=== PATIENT | female | born 1995 | race Hispanic/Latino ===

== ENCOUNTER 2017-08-06 17:10 | Emergency (ER) | payer MEDICAID, SELFPAY | END 2017-08-06 18:25 | disposition home or self-care (01) | LOC: SCSER 17:10 | DX: J10.1 Influenza due to other identified influenza virus with other respiratory manifestations (principal) | CPT/HCPCS: 99283 ==

== ENCOUNTER 2018-10-08 10:35 | Emergency (ER) | payer MEDICAID, SELFPAY ==
[2018-10-08] MEDS ORDERED: Lidocaine 1% w/Epinephrine 1:100K 20 ML VIAL ONE (11:54)
[2018-10-08] MEDS ORDERED: Bacitracin Zinc 1 Packet ONE (12:25)
== END 2018-10-08 12:36 | disposition home or self-care (01) ==
LOC: ERS 10:35
DX: O99.711 Diseases of the skin and subcutaneous tissue complicating pregnancy, first trimester (principal); L02.415 Cutaneous abscess of right lower limb; Z3A.14 14 weeks gestation of pregnancy
CPT/HCPCS: 10061; J2001

== ENCOUNTER 2018-12-01 12:06 | Day surgery (SDC) | payer MEDICAID, OTHER ==
[2018-12-01] MEDS ORDERED: Lactated Ringer's 500 ML IV SCH (13:00)
--- NOTE | 2018-12-01 13:04 | PDOC.LDHP ---
Labor and Delivery H&P Chief complaint: other ("anxiety") HPI: Patient of Dr gonzalez Location: Triage Time: 1302 CC: "panic attack" HPI: 23 yo with EDC 04/06/19, at 22 weeks 0 days here for "anxiety attack". She ststes she went to a [employer] yesterday and "had a drink" and has had anxiety since. She has no CP, REDDY, no LOF, no VB, good FM. No CTX. She has a past HX of anxiety but is on no meds. Review of Systems: complete ros completed and is per HPI Current gestational age (weeks): 22 (0 days) Due date: 04/06/19 Dating criteria: last menstrual period Grav: 3 Para: 2 OB History Details: x 2 Current complications: other (HX unmedicated anxiety) Abnormal US findings: No Current medications: pre- vitamins Previous surgical history: none Allergies/Adverse Reactions: Allergies Allergy/AdvReac Type Severity Reaction Status Date / Time No Known Allergies Allergy Verified 06/27/16 04:45 - Physical Exam Vital signs reviewed and normal: yes (100/53 99 22 98.2) General: NAD Heart: RRR Lungs: CTAB Abdomen: gravid Welling contractions every: Doppler FHTs wnl 150s; abd soft..no CTX - Assessment 23 yo at 22 weeks weeks multip with untreated anxiety, r/o other chemical/drug exposure per "drink" - Plan Plan: observation in L&D (I have ordered a CMP and UDS. We will give 500ml LR as fluid bolus for conservative care. No evidence tachycardia on pulse check but will r/o organic issue with EKG. May need outpatient med start for "anxiety ".)
[2018-12-01 13:45] LABS: ALT (SGPT) 9 U/L (8-55); AST (SGOT) 15 U/L (5-34); Albumin 3.7 g/dL (3.5-5.0); Alkaline Phosphatase 55 U/L (40-150); Anion Gap 10 mmol/L (10-20); BUN (Urea Nitrogen) 5 mg/dL (7.0-18.7); Bilirubin, Total 0.4 mg/dL (0.2-1.2); Calc. Creatinine Clearance 0 mL/min (70-130); Calcium 8.7 mg/dL (7.8-10.44); Carbon Dioxide 25 mmol/L (22-29); Chloride 104 mmol/L (98-107); Estimated GFR-MDRD Greater than 90; Glucose 86 mg/dL (70-105); Potassium 3.3 mmol/L (3.5-5.1); Protein, Total 6.7 g/dL (6.0-8.3); Sodium 136 mmol/L (136-145)
--- NOTE | 2018-12-01 13:47 | PDOC.EVN ---
Event Note - Event Note Event Note: At bedside: patient states had one vodka based beverage last PM and that gave "anxiety". Similar sxs with a friend who also took the drink... so we will check UDS. Patient states she is on probation for another issue and must take drug tests monthly. She is in no acute distress...vitals ok, and reviewed. I recommended starting meds with her provider if needed.
--- NOTE | 2018-12-01 14:08 | PDOC.EVN ---
Event Note - Event Note Event Note: Triage follow up: Patient has removed her IV and states she is leaving.Declines further eval. She has declined to leave a urine sample. Patient leaving prior to full work up.
== END 2018-12-01 14:10 | disposition left against medical advice (07) ==
LOC: L&D/OP 12:06
PROVIDERS: ATTEND Obstetrics & Gynecology
DX: O99.342 Other mental disorders complicating pregnancy, second trimester (principal); F41.0 Panic disorder [episodic paroxysmal anxiety]; Z3A.22 22 weeks gestation of pregnancy; Z79.899 Other long term (current) drug therapy
CPT/HCPCS: 36415; 80053; 96360; 99282

== ENCOUNTER 2019-03-19 11:22 | Day surgery (SDC) | payer OTHER ==
[2019-03-19 12:05] VITALS: BMI 36.3
--- NOTE | 2019-03-19 19:39 | PRG ---
DATE OF SERVICE: 03/19/2019 PRIMARY OB: Liza Hodan Bennett, certified nurse sourcing intern. CHIEF COMPLAINT: Vaginal pain. HISTORY OF PRESENT ILLNESS: The patient is a 24-year-old, G3, P2 female with an intrauterine at 37 weeks and 3 days, presenting to Labor and Delivery with vaginal pain. The patient reports a history of medical induction around this time for preeclampsia. She denies headache, shortness of breath, or abdominal pain. She denies any history of elevated pressures with this . The patient does admit that she has not had any complications with this other than just fatigue and discomfort here in the last weeks. The patient has come today, looking for induction of labor. She does report her primary care provider has counseled her that elective induction can be entertained at 39 weeks gestation or later. The patient denies any headache, again chest pain, shortness of breath, nausea, vomiting, fever, fall, diarrhea, constipation, hip problems, knee problems, muscle weakness, vaginal bleeding, leakage of fluid, change in discharge, or urinary urgency or frequency. PAST MEDICAL HISTORY: Negative. PAST SURGICAL HISTORY: Negative. ALLERGIES: NO KNOWN DRUG ALLERGIES. MEDICATIONS: vitamins. SOCIAL HISTORY: Denies drug, alcohol, or tobacco use during this . OB LABS: Unavailable at time of dictation. REVIEW OF SYSTEMS: Per HPI. OBJECTIVE: VITAL SIGNS: Blood pressure is 113/54, heart rate is 88, temperature 98.4. GENERAL: She appears to be in no acute distress. She is alert and oriented, cooperative, and pleasant to interact with. HEAD: Normocephalic and atraumatic. LUNGS: Clear to auscultation bilaterally. HEART: Has a regular rate and rhythm. ABDOMEN: Gravid and soft. EXTREMITIES: Nontender and nonedematous. CERVICAL: Exam per nursing staff, she is 2 cm, unchanged from her visit earlier in the week with her primary provider. heart tracing performed for pelvic pain shows a baseline in the 120s with moderate long-term variability, positive 15 x 15 accelerations, no decelerations. Tocometer is showing some occasional irritability. ASSESSMENT AND PLAN: The patient is a 24-year-old, G3, P2 female with an intrauterine at 37 weeks and 3 days, having some vaginal pressure and sharp pains, consistent with musculoskeletal pains of . We did queen's counsel her that a belt may give her some assistance, also that time in a swimming poor or warm baths may also allow some relief with the buoyancy. We did review the recommendations for elective induction is not to be performed until after 39 weeks gestation. Fetus has a reactive NST and category 1 tracing. The patient has a followup appointment with her primary OB on Sunday, which we have encouraged that she keep. Job ID: [id number]
== END 2019-03-19 13:40 | disposition home or self-care (01) ==
LOC: L&D/OP 11:22
PROVIDERS: ATTEND Advanced Practice Midwife
DX: O99.89 Other specified diseases and conditions complicating pregnancy, childbirth and the puerperium (principal); R10.2 Pelvic and perineal pain; Z79.82 Long term (current) use of aspirin; Z3A.37 37 weeks gestation of pregnancy
CPT/HCPCS: 99282

== ENCOUNTER 2019-03-30 00:13 | Day surgery (SDC) | payer OTHER ==
[2019-03-30 00:49] VITALS: BMI 36.6
--- NOTE | 2019-03-30 04:40 | PDOC.FPROB ---
FMR OB H&P: HPI - History of Present Illness Chief Complaint: contractions History of Present Illness: 24 yo @ 38.6 presents for painful contractions. Reports they are approx every 10 minutes. Denies LOF, bleeding and discharge and reports pos movement. FMR OB H&P: Current - Care : 3 Para: 2 Gestational age: 38.6 - OB Labs Blood type: unknown RH: unknown Antibody Screen: unknown HIV: unknown RPR: unknown HepBsAg: unknown Quad screen: unknown Gonorrhea: unknown Chlamydia: unknown GBS: unknown FMR OB H&P: History - Past Medical History PMH: None - OB History OB History: None - DENTAL BILLER History DENTAL BILLER History: None - Surgical History Sx History: Denies - Social History Social History: Denies alcohol tobacco and drug use FMR OB H&P: Medications - Current Home Medications: Medication Instructions Recorded Confirmed Type Aspirin [Ecotrin] 81 mg PO DAILY 06/27/16 03/19/19 History Comb No.42/Folic Acid 1 tablet PO DAILY 06/27/16 03/19/19 History [Prena1 Chewable Tablet] Ferrous Sulfate [Iron] 325 mg PO 03/30/19 History Allergies/Adverse Reactions: Allergies Allergy/AdvReac Type Severity Reaction Status Date / Time No Known Allergies Allergy Verified 03/30/19 00:42 FMR OB H&P: ROS - Review of Systems General: denies: fever/chills, night sweats Eyes: denies: vision changes Cardiovascular: denies: chest pain Respiratory: denies: congestion, shortness of breath Gastrointestinal: denies: abdominal pain, indigestion, cramping, nausea, vomiting, diarrhea, constipation Genitourinary (Female): reports: contractions. denies: vaginal discharge, vaginal pain, vaginal bleeding, vaginal pressure Musculoskeletal: denies: pain, stiffness, tenderness Neurologic: denies: numbness, syncope FMR OB H&P: Vital Signs - Heart Tones Baseline: 135 Variability: moderate Acceleration: present Deceleration: absent Category: category 1 FMR OB H&P: Physical Exam - Physical Exam General: NAD, awake, alert and oriented HEENT: normocephalic and atraumatic, PERRLA, EOMI, conjunctiva clear, grossly normal vision, grossly normal hearing Heart: RRR, normal S1/S2, no murmurs/rubs/gallops, no edema General: CTAB, no respiratory distress, good air movement, no rales/rhonchi, no wheezing Abdomen: soft, gravid, non-tender Neurological: no focal deficit - Pelvic Exam SVE: /-2 FMR OB H&P: A/P Disposition: 24 yo @ 38 weeks presents for painful contractions - latent labor - reactive strip - cervical check , no change after 2 hours - reviewed return precautions with pt who is agreeable - will dc to home with return labor precautions Discussion: Date/Time: 03/30/19 200 This H&P was discussed with [] and [] who agree with the above documentation and plan. Addendum - Attending - Attending Attestation Date/Time: 03/30/19 3820 I personally evaluated the patient and discussed the management with Dr. Roman. I agree with the History, Examination, Assessment and Plan documented above.
== END 2019-03-30 03:00 ==
LOC: L&D/OP 00:13
PROVIDERS: ATTEND Student in an Organized Health Care Education/Training Program
DX: Z34.83 Encounter for supervision of other normal pregnancy, third trimester (principal); Z3A.38 38 weeks gestation of pregnancy; Z79.82 Long term (current) use of aspirin; Z79.899 Other long term (current) drug therapy

== ENCOUNTER 2019-04-03 09:33 | Day surgery (SDC) | payer OTHER ==
[2019-04-03 10:02] VITALS: BMI 36.6
[2019-04-03] MEDS ORDERED: hydrALAZINE 20 MG/ML VIAL SLOW IVP PRN (11:02)
--- NOTE | 2019-04-03 11:50 | PRG ---
DATE OF SERVICE: 04/03/2019 PRIMARY BANKING OFFICER: Hodan Bennett CNM CHIEF COMPLAINT: Pelvic pain and shortness of breath. HISTORY OF PRESENT ILLNESS: The patient is a 24-year-old, G3, P2, female with an intrauterine at 39 weeks and 4 days, presenting to Labor and Delivery with pelvic pain she has had for weeks now and some shortness of breath. She described her shortness of breath is more difficulty taking a deep breath that she noticed today when she was taking her child to the school. She is scheduled for induction of labor tonight and wants to know if she can come in sooner. The patient denies any vaginal bleeding, any leakage of fluid. She denies headache or chest pain. She denies nausea, vomiting, diarrhea, constipation, hip problems, knee problems, or muscle weakness. PAST MEDICAL HISTORY: Negative. PAST SURGICAL HISTORY: Negative. ALLERGIES: NO KNOWN DRUG ALLERGIES. MEDICATIONS: vitamins. SOCIAL HISTORY: Denies drug, alcohol, or tobacco use. OB LABS: Unavailable at the time of dictation. REVIEW OF SYSTEMS: Per HPI. PHYSICAL EXAMINATION: VITAL SIGNS: Blood pressure 120/76, heart rate of 81, saturating 100% on room air, respiratory rate of 18. GENERAL: She appears to be in no acute distress. She is alert, oriented, cooperative and pleasant to interact with. HEAD: Head is normocephalic and atraumatic. LUNGS: Clear to auscultation bilaterally. HEART: Regular rate and rhythm. ABDOMEN: Gravid and soft. EXTREMITIES: Nontender and nonedematous. CERVICAL: She is 3, 50, -2, which is unchanged from 4 days ago. heart tracing shows fetus with a baseline in the 120s with moderate long-term variability, positive 15 x 15 accelerations, no decelerations. Tocometer showing some irritability, but no contraction pattern. ASSESSMENT AND PLAN: The patient is a 24-year-old with intrauterine at 39 weeks and 4 days, scheduled today for an induction of labor. Labor and Delivery is full at the moment and is unable to take her in any sooner. The patient is being discharged home with a reactive NST and reassurance. Her shortness of breath is likely physiologic changes of . The patient will be notified sooner than her scheduled time of induction should there be an opening. Job ID: [id number]
== END 2019-04-03 11:05 | disposition home or self-care (01) ==
LOC: L&D/OP 09:33
PROVIDERS: ATTEND Advanced Practice Midwife
DX: O99.89 Other specified diseases and conditions complicating pregnancy, childbirth and the puerperium (principal); R10.2 Pelvic and perineal pain; R06.02 Shortness of breath; Z3A.39 39 weeks gestation of pregnancy
CPT/HCPCS: 99282

== ENCOUNTER 2019-04-03 19:15 | Inpatient (IN) | payer OTHER ==
[2019-04-03 20:08] VITALS: BMI 34.7
[2019-04-03] MEDS ORDERED: Carboprost 250 MCG/ML AMP IM PRN (20:57)
[2019-04-03] MEDS ORDERED: Promethazine HCl 25 MG/ML VIAL IM PRN (20:57)
[2019-04-03] MEDS ORDERED: Diphenoxylate HCl/Atropine Tablet PO PRN ×2 (20:57)
[2019-04-03] MEDS ORDERED: Lidocaine 1% (PF) 30 ML VIAL SC PRN (20:57)
[2019-04-03] MEDS ORDERED: Methylergonovine 0.2 MG/ML VIAL IM PRN (20:57)
[2019-04-03] MEDS ORDERED: Ondansetron PF 4 MG/2 ML Vial IVP PRN (20:57)
[2019-04-03] MEDS ORDERED: hydrALAZINE 20 MG/ML VIAL SLOW IVP PRN (20:57)
[2019-04-03] MEDS ORDERED: HYDROcodone/Acetaminophen 5/325 mg Tablet PO PRN ×2 (20:57)
[2019-04-03] MEDS ORDERED: Ibuprofen 800 MG TAB PO PRN (20:57)
[2019-04-03] MEDS ORDERED: NS / Oxytocin 40 units/1000ml 1,000 ML IV PRN (20:57)
[2019-04-03] MEDS ORDERED: Misoprostol 200 MCG TAB PR PRN (20:57)
[2019-04-03] MEDS ORDERED: NS w/ Oxytocin 10 units 500 ML IV SCH (21:00)
--- NOTE | 2019-04-03 21:07 | PDOC.LDHP ---
Labor and Delivery H&P Chief complaint: scheduled induction HPI: Presents for scheduled elective induction of labor Current gestational age (weeks): 39 (and 4 days) Due date: 04/06/19 Dating criteria: last menstrual period (verified with 2nd trimester US) Grav: 3 Para: 2 OB History Details: 09/14/14 - 4lbs 13oz Male, , Severe Preeclampsia 08/24/2016 - 8lb 9oz male, 2018 current Current complications: other (CT + at [facility] visit on 10/22/18. CT [facility] negative on 11/28/2018) Abnormal US findings: No Current medications: pre-mattie vitamins, other (81 mg Aspirin PO QD) Previous surgical history: none Allergies/Adverse Reactions: Allergies Allergy/AdvReac Type Severity Reaction Status Date / Time No Known Allergies Allergy Verified 04/03/19 20:05 Social history: none - Physical Exam General: NAD Lungs: nonlabored breathing Abdomen: gravid Extremeties: no edema FHT: category 1 - Vaginal Exam cm dilated: 3 Effacement: 50% Station: -2 - OB Labs Blood type: O RH: positive Antibody Screen: negative HIV: negative RPR: negative HEPSAg: negative 1 hour GCT: negative GBS: negative Urine drug screen: negative Rubella: immune - Assessment L&D Assessment: elective induction at term - Plan Plan: admit to L&D -: Pitocin for induction
[2019-04-03] MEDS: Lactated Ringer's 1,000 ML IV SCH (21:20)
[2019-04-03 21:39] LABS: Mean Corpuscular HGB CONC 33.9 g/dL (32.0-36.0); Mean Corpuscular Hemoglobin 26.6 pg (27.0-31.0); Mean Corpuscular Volume 78.5 fL (78.0-98.0); Mean Platelet Volume 9.2 fL (7.4-10.4); Platelet Count 204 thou/uL (130-400); RBC Distribution Width 12.7 % (11.5-14.5); Red Blood Cell (RBC) Count 3.76 mill/uL (4.20-5.40); White Blood Cell (WBC) Count 7.6 thou/uL (4.8-10.8)
[2019-04-03 22:20] LABS: Syphilis Antibody Nonreactive (Nonreactive); Syphilis Antibody Index 0.02 S/CO (<1.00 Non-Reactive)
[2019-04-03 22:22] LABS: Hep B Surf Ag Non-Reactive S/CO (NonReactive)
[2019-04-04] MEDS ORDERED: diphenhydrAMINE 25 MG CAP PO SCH (00:15)
[2019-04-04] MEDS: Lactated Ringer's 1,000 ML IV SCH (03:48)
[2019-04-04] MEDS ORDERED: Butorphanol Tartrate 1 MG/ML VIAL SLOW IVP PRN (05:34)
[2019-04-04] MEDS ORDERED: Fentanyl 4 mcg/Bup 0.1% Cadd 100 ML ONE (07:34)
[2019-04-04] MEDS ORDERED: Lidocaine 1.5%/Epinephrine 1:200,000 5 ML AMPUL IJ ONE (07:35)
--- NOTE | 2019-04-04 07:54 | PDOC.LDPN ---
Labor & Delivery Progress Note - Subjective Subjective: painful contractions - Objective Vital signs reviewed and normal: yes General: breathing through contractions Uterine fundus: tender to palpation Dilation: 4 Effacement: 90% Station: -1 FHT: category 1 (Baseline 115, Moderate variability, + accelerations 15x15 and no decels. ) AROM: clear fluid - Assessment (1) 39 weeks gestation of Code(s): Z3A.39 - 39 WEEKS GESTATION OF Current Visit: Yes Status : Acute
[2019-04-04] MEDS ORDERED: Lactated Ringer's 500 ML IV PRN (07:57)
[2019-04-04] MEDS ORDERED: Promethazine HCl 25 MG/ML VIAL IM PRN (07:57)
[2019-04-04] MEDS ORDERED: Ondansetron PF 4 MG/2 ML Vial IVP PRN ×2 (07:57→12:56)
[2019-04-04] MEDS ORDERED: diphenhydrAMINE 50 MG/ML VIAL IVP PRN (07:57)
[2019-04-04] MEDS ORDERED: ePHEDrine/0.9% NaCl/PF SYRINGE 50 mg/10 ml SLOW IVP PRN (07:57)
[2019-04-04] MEDS ORDERED: Acetaminophen 325 MG TAB PO PRN (07:57)
[2019-04-04] MEDS ORDERED: Naloxone HCl 0.4 mg/ml Vial IVP PRN ×2 (07:57)
[2019-04-04] MEDS ORDERED: Communication Order-Pharmacy FS SCH (08:00)
[2019-04-04] MEDS ORDERED: Fentanyl 4 mcg/Bupivacaine 0.1% Cassette 100 ML EPIDURAL SCH (08:00)
--- NOTE | 2019-04-04 11:12 | PDOC.OPDEL ---
OB Operative/Delivery Note Delivery Dr/Surgeon: Keya Bennett Pre-Delivery Diagnosis: active labor, elective induction Procedure/Post Delivery Dx: spontaneous vaginal delivery Weeks gestation: 39 Anesthesia: epidural - Findings A Sex: female Weight: 7 lb 13 oz - 1 min: 8 - 5 min: 9 - Additional Findings/Plan Placenta delivered: spontaneous (with trailing membranes) Repaired Obstetrical Laceration: none Estimated blood loss: 200mL Compilations/Other Findings: Called back to room 12 minsute post delivery for significant bleeding. estimated 300mL in 1 min. RN doing fundal massage. Sterile golves donned and uterine sweep performed using raytec on rings. Small pieces of trailing membranes removed from lower uterine segment. Uterus is firm. Bleeding resolved. Cytotec NC 800mcg given Post delivery plan: routine recovery
[2019-04-04] MEDS ORDERED: Methylergonovine 0.2 MG/ML VIAL IM PRN (12:56)
[2019-04-04] MEDS ORDERED: HYDROcodone/Acetaminophen 5/325 mg Tablet PO PRN (12:56)
[2019-04-04] MEDS ORDERED: Benzocaine-Menthol 82.5 ML CAN TOP PRN (12:56)
[2019-04-04] MEDS ORDERED: NS / Oxytocin 40 units/1000ml 1,000 ML IV SCH (12:56)
[2019-04-04] MEDS ORDERED: hydrALAZINE 20 MG/ML VIAL SLOW IVP PRN (12:56)
[2019-04-04] MEDS ORDERED: Bisacodyl 10 MG SUPP PR PRN (12:56)
[2019-04-04] MEDS ORDERED: Adacel (T-DAP) 0.5 ML SYRINGE IM ONE (12:56)
[2019-04-04] MEDS ORDERED: Milk Of Magnesia 30 ML UDCUP PO PRN (12:56)
[2019-04-04] MEDS: Ibuprofen 800 MG TAB PO SCH (20:30)
[2019-04-05] MEDS: HYDROcodone/Acetaminophen 5/325 mg Tablet PO PRN ×2 (03:49→09:30)
[2019-04-05] MEDS: Ibuprofen 800 MG TAB PO SCH ×3 (05:41→14:19)
[2019-04-05] MEDS: Ferrous Sulfate 325 MG TAB PO SCH ×3 (05:42→16:21)
[2019-04-05] MEDS: Docusate Calcium (SURFAK) 240 MG CAP PO SCH ×2 (05:42→08:56)
[2019-04-05] MEDS ORDERED: Prenatal Vitamin 1 TAB PO SCH (09:00)
[2019-04-05 15:36] VITALS: TEMP 98
[2019-04-05 15:38] VITALS: BP 129/88
== END 2019-04-05 16:45 | disposition home or self-care (01) | DRG 807 ==
LOC: L&D 19:22 → 3SW 04-04 20:27
PROVIDERS: ADMIT Obstetrics & Gynecology; ATTEND Obstetrics & Gynecology
PROC: 10E0XZZ Delivery of Products of Conception, External Approach (ICD-10-PCS; principal; 2019-04-04)
PROC: 10907ZC Drainage of Amniotic Fluid, Therapeutic from Products of Conception, Via Natural or Artificial Opening (ICD-10-PCS; 2019-04-04)
PROC: 3E0P7VZ Introduction of Hormone into Female Reproductive, Via Natural or Artificial Opening (ICD-10-PCS; 2019-04-04)
PROC: 3E033VJ Introduction of Other Hormone into Peripheral Vein, Percutaneous Approach (ICD-10-PCS; 2019-04-04)
DX: O80 Encounter for full-term uncomplicated delivery (principal); Z37.0 Single live birth; Z3A.39 39 weeks gestation of pregnancy
CPT/HCPCS: 36415; 51702; 85027; 86780; 86850; 86900; 86901; 87340; 90715; J0595; J2001; J2405; J2590; J3490; Q0163